=== PATIENT | female | born 1985 | race Hispanic/Latino ===

== ENCOUNTER 2020-05-02 10:01 | Outpatient (CLI) | payer OTHER ==
[2020-05-02 20:25] LABS: SARS-CoV-2 PCR by NAA Not Detected (NotDetected)
== END 2020-05-02 10:02 | disposition home or self-care (01) ==
LOC: CSHLAB 10:01
PROVIDERS: ATTEND Family Medicine
DX: Z20.822 Contact with and (suspected) exposure to COVID-19 (principal)
CPT/HCPCS: 87635; U0003; U0005

== ENCOUNTER 2020-05-05 19:30 | Inpatient (IN) | payer MEDICAID, OTHER ==
[2020-05-05 21:36] VITALS: BMI 31.2
[2020-05-05] MEDS ORDERED: Carboprost 250 MCG/ML AMP IM PRN (21:39)
[2020-05-05] MEDS ORDERED: Promethazine HCl 25 MG/ML VIAL IM PRN (21:39)
[2020-05-05] MEDS ORDERED: Butorphanol Tartrate 1 MG/ML VIAL SLOW IVP PRN (21:39)
[2020-05-05] MEDS ORDERED: Methylergonovine 0.2 MG/ML VIAL IM PRN (21:39)
[2020-05-05] MEDS ORDERED: NS / Oxytocin 40 units/1000ml 1,000 ML IV PRN (21:39)
[2020-05-05] MEDS ORDERED: hydrALAZINE 20 MG/ML VIAL SLOW IVP PRN (21:39)
[2020-05-05] MEDS ORDERED: Lactated Ringer's 1,000 ML IV SCH (21:39)
[2020-05-05] MEDS ORDERED: HYDROcodone/Acetaminophen 5/325 mg Tablet PO PRN (21:39)
[2020-05-05] MEDS ORDERED: Lidocaine 1% (PF) 30 ML VIAL SC PRN (21:39)
[2020-05-05] MEDS ORDERED: Ondansetron PF 4 MG/2 ML Vial IVP PRN (21:39)
[2020-05-05] MEDS ORDERED: Misoprostol 200 MCG TAB PR PRN (21:39)
[2020-05-05] MEDS ORDERED: Ibuprofen 800 MG TAB PO PRN (21:39)
[2020-05-05] MEDS ORDERED: Penicillin G Potassium 5 MILL.UNITS in Sodium Chloride 0.9% 100 ML IVPB SCH (22:00)
[2020-05-05] MEDS ORDERED: Misoprostol 100 MCG TAB PO SCH (22:00)
[2020-05-05 22:34] LABS: Hemoglobin 11.6 g/dL (12.0-15.5); Mean Corpuscular HGB CONC 32.7 g/dL (32.0-36.0); Mean Corpuscular Hemoglobin 28.2 pg (27.0-33.0); Mean Corpuscular Volume 86.4 fl (81.6-98.3); Mean Platelet Volume 10.6 fl (7.4-10.4); Platelet Count 264 10x3/uL (150-450); RBC Distribution Width 14.5 % (11.5-14.5); Red Blood Cell (RBC) Count 4.11 10x6/uL (3.90-5.03); White Blood Cell (WBC) Count 11.2 10x3/uL (3.5-10.5)
[2020-05-05 23:10] LABS: Hep B Surf Ag Non-Reactive S/CO (NonReactive); Syphilis Antibody Nonreactive (Nonreactive); Syphilis Antibody Index 0.03 S/CO (<1.00 Non-Reactive)
[2020-05-05 23:34] LABS: HBSAg Index 0.15 S/CO (0-0.99)
[2020-05-06] MEDS: Penicillin G 2.5 MILL.units 2.5 MILL.UNITS in Premix Bag 1 BAG IVPB SCH ×2 (02:27→08:49)
[2020-05-06] MEDS ORDERED: NS w/ Oxytocin 30 units 500 ML ONE ×2 (03:18→04:38)
[2020-05-06] MEDS ORDERED: Misoprostol 200 MCG TAB ONE (03:18)
[2020-05-06] MEDS ORDERED: Methylergonovine 0.2 MG/ML VIAL ONE (03:18)
[2020-05-06] MEDS ORDERED: Lidocaine 1% (PF) 30 ML VIAL ONE (03:50)
[2020-05-06] MEDS ORDERED: Promethazine HCl 25 MG/ML VIAL IM PRN (06:34)
[2020-05-06] MEDS ORDERED: HYDROcodone/Acetaminophen 5/325 mg Tablet PO PRN ×2 (06:34)
[2020-05-06] MEDS ORDERED: Lanolin Ointment 7 GM TUBE TOP PRN (06:34)
[2020-05-06] MEDS ORDERED: Bisacodyl 10 MG SUPP PR PRN (06:34)
[2020-05-06] MEDS ORDERED: Adacel (T-DAP) 0.5 ML SYRINGE IM ONE (06:34)
[2020-05-06] MEDS ORDERED: Benzocaine-Menthol 82.5 ML CAN TOP PRN (06:34)
[2020-05-06] MEDS ORDERED: Milk Of Magnesia 30 ML UDCUP PO PRN (06:34)
[2020-05-06] MEDS ORDERED: hydrALAZINE 20 MG/ML VIAL SLOW IVP PRN (06:34)
[2020-05-06] MEDS ORDERED: Ondansetron PF 4 MG/2 ML Vial IVP PRN (06:34)
[2020-05-06] MEDS ORDERED: NS w/ Oxytocin 30 units 500 ML IVPB SCH (06:45)
[2020-05-06] MEDS: Ferrous Sulfate 325 MG TAB PO SCH ×2 (08:43→17:11)
[2020-05-06] MEDS: Ibuprofen 800 MG TAB PO SCH ×3 (08:44→20:50)
[2020-05-06] MEDS: Prenatal Vitamin 1 TAB PO SCH (08:46)
[2020-05-06] MEDS: Docusate Calcium (SURFAK) 240 MG CAP PO SCH ×2 (08:46→20:50)
[2020-05-07] MEDS: Ibuprofen 800 MG TAB PO SCH (04:59)
[2020-05-07] MEDS: Ferrous Sulfate 325 MG TAB PO SCH (07:32)
[2020-05-07] MEDS: Docusate Calcium (SURFAK) 240 MG CAP PO SCH (08:04)
[2020-05-07] MEDS: Prenatal Vitamin 1 TAB PO SCH (08:04)
[2020-05-07 08:07] VITALS: BP 103/70; TEMP 97.9
== END 2020-05-07 14:20 | disposition home or self-care (01) | DRG 807 ==
LOC: CSHLD 21:02 → CSHPP 05-06 06:20
PROVIDERS: ADMIT Family Medicine; ATTEND Family Medicine
PROC: 10E0XZZ Delivery of Products of Conception, External Approach (ICD-10-PCS; principal; 2020-05-06)
DX: O99.824 Streptococcus B carrier state complicating childbirth (principal); Z37.0 Single live birth; O24.429 Gestational diabetes mellitus in childbirth, unspecified control; Z20.822 Contact with and (suspected) exposure to COVID-19; Z3A.39 39 weeks gestation of pregnancy; O69.1XX0 Labor and delivery complicated by cord around neck, with compression, not applicable or unspecified
CPT/HCPCS: 36415; 36416; 85027; 86780; 86850; 86900; 86901; 87340; J2540; J2590; J3490

== ENCOUNTER 2022-04-29 14:02 | Outpatient (CLI) | payer OTHER | END 2022-04-29 14:03 | disposition home or self-care (01) | LOC: CSHULT 14:02 | PROVIDERS: ATTEND Family Medicine | DX: O09.892 Supervision of other high risk pregnancies, second trimester (principal) | CPT/HCPCS: 76805 ==

== ENCOUNTER 2024-03-05 10:28 | Emergency (ER) | payer MEDICAID, SELFPAY ==
[2024-03-05] MEDS ORDERED: Meclizine HCl 25 MG TAB ONE (12:16)
[2024-03-05] MEDS ORDERED: Ondansetron PF 4 MG/2 ML Vial ONE (12:16)
[2024-03-05 12:20] LABS: Bilirubin Neg (Negative); Blood, Urine 25 (Negative); Clarity Clear (Clear); Glucose, Urine (Dipstick) Normal (Negative); Ketone, Urine Negative (Negative); Leukocyte 25 (Negative); Nitrite Negative (Negative); Protein, Urine (Dipstick) 30 mg/dl (Neg-Trace); Specific Gravity, Urine 1.015 (1.005-1.030); Urobilinogen Normal mg/dL (Less than 2); pH, Urine 6.5 (5.0-9.0)
[2024-03-05 12:22] LABS: #Basophils Less than 0.03 10x3/uL (0.0-0.2); #Eosinophils Less than 0.03 10x3/uL (0.0-0.5); #Monocytes 0.48 10x3/uL (0.0-1.1); %Basophils 0.2 % (0.0-2.0); %Eosinophils 0.1 % (0.0-6.0); %Lymphocytes 11.5 % (18.0-47.0); %Monocytes 4.3 % (0.0-10.0); %Neutrophils 83.4 % (40.0-75.0); Hematocrit 41.7 % (34.9-44.5); Mean Corpuscular HGB CONC 33.6 g/dL (32.0-36.0); Mean Corpuscular Hemoglobin 29.7 pg (27.0-33.0); Mean Corpuscular Volume 88.3 fL (81.6-98.3); Mean Platelet Volume 9.6 fL (7.4-10.4); Platelet Count 331 10x3/uL (150-450); RBC Distribution Width 12.6 % (11.5-14.5); Red Blood Cell (RBC) Count 4.72 10x6/uL (3.90-5.03); White Blood Cell (WBC) Count 11.27 10x3/uL (3.5-10.5)
[2024-03-05 12:23] LABS: Pregnancy Test - Urine (BHCG) Negative (Negative); Pregu Control Background? CLEAR/WHITE (CLR/WHITE); Pregu Control Bar Appear? YES (CONTROL BAR); Specific Gravity 1.015 (1.002-1.036)
[2024-03-05 12:38] LABS: ALT (SGPT) 30 U/L (8-55); AST (SGOT) 28 U/L (5-34); Albumin 4.4 g/dL (3.5-5.0); Alkaline Phosphatase 68 U/L (40-110); Anion Gap 15 mmol/L (10-20); BUN (Urea Nitrogen) 16 mg/dL (7.0-18.7); Bilirubin, Total 0.6 mg/dL (0.2-1.2); Calc. Creatinine Clearance 0 mL/min (70-130); Calcium 9.5 mg/dL (7.8-10.44); Carbon Dioxide 21 mmol/L (22-29); Chloride 107 mmol/L (98-107); Estimated GFR 106; Globulin 3.9 g/dL (2.4-3.5); Glucose 132 mg/dL (70-105); Magnesium 2.1 mg/dL (1.6-2.6); Potassium 4.1 mmol/L (3.5-5.1); Protein, Total 8.3 g/dL (6.0-8.3); Sodium 139 mmol/L (136-145)
[2024-03-05 12:41] LABS: Bacteria/HPF Rare-Few HPF (None Seen); CAUTI Indications for Culture Pelvic or flank pain; RBC/HPF 0-3 HPF (0-3); Squamous Epithelial 0-3 HPF (0-3); Troponin I Less than 0.010 ng/mL (< 0.028); Urine Culture Reflex No No; WBC/HPF 0-3 HPF (0-3)
== END 2024-03-05 15:34 | disposition home or self-care (01) ==
LOC: CSHERS 10:28
DX: H81.399 Other peripheral vertigo, unspecified ear (principal); R11.0 Nausea; R51.9 Headache, unspecified
CPT/HCPCS: 70450; 80053; 81001; 81025; 83735; 84484; 85025; 93005; 96374; J2405